=== PATIENT | male | born 1945 | race Caucasian/White ===

== ENCOUNTER 2025-04-17 10:15 | Outpatient (CLI) | payer MEDICARE, OTHER ==
[2025-04-17 10:44] LABS: MEAN PLATELET VOLUME 6.3 FL (7.4-10.4); RED CELL DISTRIBUTION WIDTH 13.1 % (11.5-14.5)
[2025-04-17 11:01] LABS: CHOL/HDL RATIO 3.1 (0.00-4.99); CREATININE 1.21 MG/DL (0.60-1.10); LDL CHOLESTEROL 90 MG/DL (50-100); TOTAL CARBON DIOXIDE 29.8 MMOL/L (24-32); eGFR 58 ML/MIN
== END 2025-04-17 23:59 | disposition home or self-care (01) ==
LOC: LAB 10:15
PROVIDERS: ATTEND Physician Assistant
DX: R53.83 Other fatigue (principal); E78.5 Hyperlipidemia, unspecified; R53.1 Weakness; R73.9 Hyperglycemia, unspecified
CPT/HCPCS: 36415; 80053; 80061; 84153; 85025